=== PATIENT | female | born 1970 | race African-American/Black ===

== ENCOUNTER 2019-06-29 17:49 | Emergency (ER) | payer BC ==
--- NOTE | 2019-06-29 17:53 | PDOC ---
Rapid Medical Evaluation Time Seen by Provider: 06/29/19 17:51 Medical Evaluation: Allergies Allergy/AdvReac Type Severity Reaction Status Date / Time No Known Allergies Allergy Verified 08/05/12 18:58 06/29/19 17:52 Pt with complaints of: rt 2nd digit with hangnail 1 week ago and now with swelling and pain Pt on brief exam:+ paronychia pt ordered for: none pt to proceed to the ED Discharge Disposition - Diagnosis Paronychia - Referrals - Patient Instructions - Post Discharge Activity
[2019-06-29 17:54] VITALS: BP 148/85; PULSE 74; TEMP 98; BMI 39.1
--- NOTE | 2019-06-29 18:26 | PDOC ---
History of Present Illness - General Chief Complaint: Edema Stated Complaint: HAND PAIN Time Seen by Provider: 06/29/19 17:51 - History of Present Illness Initial Comments: 06/29/19 18:23 48-year-old female with a past medical history of hypothyroidism hypertension dyslipidemia and diabetes presents for evaluation of right second finger pain without systemic symptoms x2 days Past History - Past Medical History Allergies/Adverse Reactions: Allergies Allergy/AdvReac Type Severity Reaction Status Date / Time No Known Allergies Allergy Verified 06/29/19 17:54 Home Medications: Ambulatory Orders Unobtainable Home Med List 0 dose .ROUTE UTDICT 08/05/12 Cephalexin [Keflex] 500 mg PO QID #40 capsule 06/29/19 Sulfamethoxazole/Trimethoprim [Bactrim Ds -] 1 tab PO BID #14 tablet 06/29/19 COPD: No Diabetes: Yes - Psycho Social/Smoking Cessation Hx Smoking Status: No Smoking History: Never smoked Number of Cigarettes Smoked Daily: 0 Information on smoking cessation initiated: No Hx Alcohol Use: No Drug/Substance Use Hx: No Review of Systems - Review of Systems Musculoskeletal: Yes: See HPI *Physical Exam - Vital Signs Last Vital Signs Temp Pulse Resp BP Pulse Ox 98 F 74 18 148/85 99 06/29/19 17:52 06/29/19 17:52 06/29/19 17:52 06/29/19 17:52 06/29/19 17:52 - Physical Exam Comments: 06/29/19 18:23 Right second finger is mildly erythemic and swollen at the ulnar aspect of the nail fold. No gross sensorimotor deficits no areas of fluctuance neurovascular intact Medical Decision Making - Medical Decision Making 06/29/19 18:24 According to the patient this pain is starting to improve. There is no fluctuance. I would not I&D this today I have encouraged warm soaks placed on a course of Bactrim and Keflex and I will have her follow-up with orthopedic hand surgery she is in agreement with the plan I have also discussed use of Tylenol for pain avoiding anti-inflammatories because of her INGE inhibitor Discharge - Discharge Information Problems reviewed: Yes Clinical Impression/Diagnosis: Paronychia Condition: Stable Disposition: HOME - Admission No - Additional Discharge Information Prescriptions: Cephalexin [Keflex] 500 mg PO QID #40 capsule Sulfamethoxazole/Trimethoprim [Bactrim Ds -] 1 tab PO BID #14 tablet - Follow up/Referral Referrals: Jeremiah Pollack MD [Primary Care Provider] - Brad Lassiter MD [Staff Physician] - - Patient Discharge Instructions Patient Printed Discharge Instructions: KJ Resendez for Paronychia Additional Instructions: Return to the emergency room for worsening symptoms. Without fail please follow -up with orthopedic hand surgery in 2 to 3 days for further evaluation and treatment options. Tylenol as discussed for pain. Warm soaks 5-6 times a day will help encourage drainage or help to resolve the infection. Please take the antibiotics as directed. - Post Discharge Activity
== END 2019-06-29 18:32 | disposition home or self-care (01) ==
LOC: JERFT 17:49
DX: L03.011 Cellulitis of right finger (principal); E11.9 Type 2 diabetes mellitus without complications; E03.9 Hypothyroidism, unspecified
CPT/HCPCS: 99282-25